=== PATIENT | male | born 1970 | race Caucasian/White ===

== ENCOUNTER 2017-08-09 10:08 | Day surgery (SDC) | payer MEDICAID ==
[2017-08-04 10:38] VITALS: BMI 37.9
[2017-08-09] MEDS ORDERED: Midazolam 2 MG/2 ML VIAL ONE (13:43)
[2017-08-09] MEDS ORDERED: Propofol 10 mg/ml Inj (20 ML) ONE (13:43)
[2017-08-09] MEDS ORDERED: Lactated Ringer's 1,000 ML IV ONE (13:50)
[2017-08-09] MEDS ORDERED: Lidocaine Hydrochloride 20 ML INJ ONE (13:50)
[2017-08-09] MEDS ORDERED: ceFAZolin 1 gm in NS 1 GM/100 ML BAG IVPB ONE (13:51)
[2017-08-09] MEDS ORDERED: HYDROmorphone 0.5 mg/0.5 ml ISec IVP PRN (14:32)
[2017-08-09 14:49] VITALS: O2SAT 100
[2017-08-09] MEDS ORDERED: Oxycodone/Acetaminophen 5/325 mg Tab PO PRN (14:53)
[2017-08-09 15:44] VITALS: BP 110/82; PULSE 70; RESP 18; TEMP 97
--- NOTE | 2017-08-10 01:32 | OP ---
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 PROCEDURE PERFORMED: Wide deep excision (radical resection) soft tissue tumor of the left shoulder. SURGEON: Bakari Olivares MD ANESTHESIA: Local sedation. BLOOD LOSS: 30 mL. POSTOPERATIVE CONDITION: Stable. INDICATIONS FOR SURGERY: This is a 47-year-old male who presents for a rapidly enlarging tumor of his left shoulder, measuring approximately 5 cm who now undergo wide deep excision. DESCRIPTION OF PROCEDURE: The patient was taken to the operating room and IV sedation was administered. The patient was placed in a prone position, and the scapular area and left shoulder were prepped and draped. A generous elliptical incision was made surrounding the mass. The mass was dissected into the fascial layer and completely removed. Bleeding was controlled using Bovie. Subcutaneous flaps were raised using the Bovie and a complex tissue closure was performed using multiple layers of Monocryl, subcuticular Monocryl, and skin clips. The patient tolerated the procedure well. Returned to recovery room in stable condition. Bakari Olivares MD
== END 2017-08-09 15:58 | disposition home or self-care (01) ==
LOC: C.SDS 10:08
PROVIDERS: ATTEND Surgery
DX: R22.9 Localized swelling, mass and lump, unspecified (principal); Z79.4 Long term (current) use of insulin; E11.9 Type 2 diabetes mellitus without complications; J45.909 Unspecified asthma, uncomplicated; E66.9 Obesity, unspecified; Z68.37 Body mass index [BMI] 37.0-37.9, adult; E78.5 Hyperlipidemia, unspecified; I10 Essential (primary) hypertension; H54.61 Unqualified visual loss, right eye, normal vision left eye
CPT/HCPCS: 13121; 23071; 82948; 88307; J0690; J2001; J2250; J2405; J2704; J3010; J7120

== ENCOUNTER 2018-03-21 08:04 | Emergency (ER) | payer MEDICAID ==
[2018-03-21 08:05] VITALS: BMI 37.9
[2018-03-21 08:12] VITALS: RESP 18
--- NOTE | 2018-03-21 08:30 | C.PDOC ---
History Of Present Illness 48 y/o male pt with PMHx of DM presents to the ER complaining of a slip and fall. Pt reports he slip and fell, hitting his forehead, in the shower this morning. Pt states he feels nauseous and overall doesn't feel well. Pt denies fever, chills, dizziness, change of vision, LOC, headache, trauma to any other areas and vomiting. - HPI Time Seen by Provider: 03/21/18 08:10 Chief Complaint (Nursing): Trauma History Per: Patient History/Exam Limitations: no limitations Onset/Duration Of Symptoms: Hrs Location Of Injury: Anterior: Head Past Medical History Reviewed: Historical Data, Nursing Documentation, Vital Signs Vital Signs: Last Vital Signs Temp 97.7 F 03/21/18 08:08 Pulse 81 03/21/18 08:08 Resp 18 03/21/18 08:08 BP 147/86 03/21/18 08:08 Pulse Ox 97 03/21/18 08:08 - Medical History PMH: Asthma, Diabetes Family History: States: No Known Family Hx - Social History Hx Tobacco Use: No Hx Alcohol Use: No Hx Substance Use: No - Immunization History Hx Tetanus Toxoid Vaccination: No Hx Influenza Vaccination: No Hx Pneumococcal Vaccination: No Review Of Systems Except As Marked, All Systems Reviewed And Found Negative. Constitutional: Positive for: Other (does not feel well; no trauma to other areas of the body ). Negative for: Fever, Chills Eyes: Negative for: Vision Change Gastrointestinal: Positive for: Nausea. Negative for: Vomiting Neurological: Negative for: Headache, Dizziness, Other (LOC) Physical Exam - Physical Exam Appears: Well, Non-toxic, No Acute Distress Skin: Normal Color, Warm, Dry Head: Normacephalic, No Laceration, Other (hematoma on the left forehead and scalp ) Eye(s): bilateral: Normal Inspection, EOMI, right: Other (prosthetic eye) Oral Mucosa: Moist Throat: Normal Neck: Normal ROM, Trachea Midline, Midline Cervical Tenderness, Supple Chest: Symmetrical, No Deformity Cardiovascular: Rhythm Regular Respiratory: Normal Breath Sounds Gastrointestinal/Abdominal: Soft, No Tenderness Back: No CVA Tenderness Extremity: Normal ROM (x4) Neurological/Psych: Oriented x3, Normal Speech, Normal Cognition Gait: Steady ED Course And Treatment O2 Sat by Pulse Oximetry: 97 (RA) Pulse Ox Interpretation: Normal - CT Scan/US head CT Other Rad Studies (CT/US): Read By Radiologist, Radiology Report Reviewed CT/US Interpretation: Accession No. : [id number]. Patient Name / ID : KEY BELCHER / [id number]. Exam Date : 03/21/2018 09:01:30 ( Approved ). Study Comment : Sex / Age : M / 48Y. Creator : Garrison Smalls MD. Dictator : Garrison Smalls MD. Weight Control Engineer : Fur Mixer : Garrison Smalls MD. Approver2 : Report Date : 03/21/2018 09:48:52. My Comment : . Date of service: 03/21/2018. PROCEDURE: CT HEAD WITHOUT CONTRAST. HISTORY: R/O Bleed. COMPARISON: Not available. TECHNIQUE: Axial computed tomography images were obtained through the head/brain without intravenous contrast. Radiation dose: Total exam DLP = 1068.13 mGy-cm mGy-cm. This CT exam was performed using one or more of the following dose reduction techniques: Automated exposure control, adjustment of the mA and/or kV according to patient size, and/or use of iterative reconstruction technique. FINDINGS: HEMORRHAGE: No intracranial hemorrhage. BRAIN: No mass effect or edema. No atrophy or chronic microvascular ischemic changes. VENTRICLES: Unremarkable. No hydrocephalus. CALVARIUM: Unremarkable. PARANASAL SINUSES: Unremarkable as visualized. No significant inflammatory changes. MASTOID AIR CELLS: Unremarkable as visualized. No inflammatory changes. OTHER FINDINGS: Right phthisis bulbi with prosthesis. IMPRESSION: No intracranial hemorrhage. Incidentally noted right phthisis bulbi. Otherwise unremarkable examination. cervicle spine CT Other Rad Studies (CT/US): Read By Radiologist, Radiology Report Reviewed CT/US Interpretation: Accession No. : [id number]. Patient Name / ID : KEY BELCHER / [id number]. Exam Date : 03/21/2018 09:07:01 ( Approved ). Study Comment : Sex / Age : M / 48Y. Creator : Alessio Oliva MD. Dictator : Alessio Oliva MD. Weight Control Engineer : Fur Mixer : Alessio Oliva MD. Approver2 : Report Date : 03/21/2018 09:59:31. My Comment : . Date of service: 03/21/2018. PROCEDURE: CT Cervical Spine without contrast. HISTORY: neck pain. COMPARISON: None available. TECHNIQUE: Axial computed tomography images were obtained of the cervical spine without the use of intravenous contrast. Coronal and sagittal reformatted images were created and reviewed. Radiation dose: Total exam DLP = 461.34 mGy-cm. This CT exam was performed using one or more of the following dose reduction techniques: Automated exposure control, adjustment of the mA and/or kV according to patient size, and/or use of iterative reconstruction technique. FINDINGS: VERTEBRAE: No fracture. Normal alignment. No destructive bony lesion. DISCS/SPINAL CANAL/NEURAL FORAMINA: No significant central canal or neural foraminal stenosis. Discs heights are grossly preserved. PARASPINAL SOFT TISSUES: Unremarkable. OTHER FINDINGS: None. IMPRESSION: Unremarkable CT of the c ervical spine. Progress Note: Treated with tylenol 650 mg PO. On re-evaluation neuro intact in no distress Reassessment Condition: Improved Medical Decision Making Medical Decision Making: Impression: slip and fell plans: -- CT cervical spine -- CT head -- glucose, POC -- tylenol Disposition Counseled Patient/Family Regarding: Studies Performed, Diagnosis, Need For Followup - Disposition Referrals: [facility] [Outside] [facility] [Outside] Disposition: HOME/ ROUTINE Disposition Time: 10:10 Condition: STABLE Instructions: Minor Head Injury Forms: [employer] (Lao) - POA Present On Arrival: None - Clinical Impression Clinical Impression: Contusion, Head injury due to trauma - PA / APPLIED MATHEMATICIAN / Resident Statement / has reviewed & agrees with the documentation as recorded. - Scribe Statement The provider has reviewed the documentation as recorded by the [facility]es Do All medical record entries made by the [facility] were at my direction and personally dictated by me. I have reviewed the chart and agree that the record accurately reflects my personal performance of the history, physical exam, medical decision making, and the department course for this patient. I have also personally directed, reviewed, and agree with the discharge instructions and disposition.
--- NOTE | 2018-03-21 09:52 | CT ---
Date of service: 03/21/2018 PROCEDURE: CT HEAD WITHOUT CONTRAST. HISTORY: R/O Bleed COMPARISON: Not available TECHNIQUE: Axial computed tomography images were obtained through the head/brain without intravenous contrast. Radiation dose: Total exam DLP = 1068.13 mGy-cm mGy-cm. This CT exam was performed using one or more of the following dose reduction techniques: Automated exposure control, adjustment of the mA and/or kV according to patient size, and/or use of iterative reconstruction technique. FINDINGS: HEMORRHAGE: No intracranial hemorrhage. BRAIN: No mass effect or edema. No atrophy or chronic microvascular ischemic changes. VENTRICLES: Unremarkable. No hydrocephalus. CALVARIUM: Unremarkable. PARANASAL SINUSES: Unremarkable as visualized. No significant inflammatory changes. MASTOID AIR CELLS: Unremarkable as visualized. No inflammatory changes. OTHER FINDINGS: Right phthisis bulbi with prosthesis IMPRESSION: No intracranial hemorrhage. Incidentally noted right phthisis bulbi. Otherwise unremarkable examination.
--- NOTE | 2018-03-21 10:03 | CT ---
Date of service: 03/21/2018 PROCEDURE: CT Cervical Spine without contrast HISTORY: neck pain COMPARISON: None available. TECHNIQUE: Axial computed tomography images were obtained of the cervical spine without the use of intravenous contrast. Coronal and sagittal reformatted images were created and reviewed. Radiation dose: Total exam DLP = 461.34 mGy-cm. This CT exam was performed using one or more of the following dose reduction techniques: Automated exposure control, adjustment of the mA and/or kV according to patient size, and/or use of iterative reconstruction technique. FINDINGS: VERTEBRAE: No fracture. Normal alignment. No destructive bony lesion. DISCS/SPINAL CANAL/NEURAL FORAMINA: No significant central canal or neural foraminal stenosis. Discs heights are grossly preserved. PARASPINAL SOFT TISSUES: Unremarkable. OTHER FINDINGS: None. IMPRESSION: Unremarkable CT of the cervical spine.
[2018-03-21 10:19] VITALS: BP 138/83; PULSE 77; TEMP 97.6
[2018-03-21 14:36] VITALS: O2SAT 97
== END 2018-03-21 10:19 | disposition home or self-care (01) ==
LOC: C.ER 08:04
DX: S09.90XA Unspecified injury of head, initial encounter (principal); S00.83XA Contusion of other part of head, initial encounter; W01.0XXA Fall on same level from slipping, tripping and stumbling without subsequent striking against object, initial encounter; E11.9 Type 2 diabetes mellitus without complications

== ENCOUNTER 2018-06-07 14:20 | Outpatient (CLI) | payer MEDICAID | END 2018-06-07 14:21 | disposition home or self-care (01) | LOC: C.CTH 14:20 ==